=== PATIENT | female | born 1965 | race Caucasian/White ===

== ENCOUNTER 2024-05-13 18:33 | Emergency (ER) | payer OTHER, SELFPAY ==
[2024-05-13 18:36] VITALS: BP 191/113
[2024-05-13] MEDS: TORADOL 30 MG IM (19:14)
[2024-05-13 19:19] VITALS: BMI 36.1
--- NOTE | 2024-05-13 19:19 | ED.GENMED ---
History of Present Illness
General
Chief Complaint: Musculo-Skeletal Complaint
Time Seen by Provider: 05/13/24 19:19
History of Present Illness
History of Present Illness:
HPI: The patient presents with left lower extremity discomfort that started several days ago but then this afternoon acutely worsened. The pain is primarily behind the left knee. She has had a Bahena's cyst in the past and the pain currently feels
similar to the time that she had a Bahena's cyst on the right side. She ultimately had a total knee replacement on the right.
EXAM:
GENERAL: Well appearing in mild distress
HEENT: Moist oral mucosa
NEUROLOGIC: Excellent strength all extremities, no coordination deficits
PSYCHIATRIC: Appropriate mental status, normal insight and judgement
EXTREMITIES: Some mild tenderness in the left popliteal fossa, no edema, moves all extremities equally, strong left DP pulse, decreased active range of motion due to pain at the left knee
SKIN: No rash, no lesions
TIME OF INITIAL ENCOUNTER: 7:30 PM
NUMBER AND COMPLEXITY OF PROBLEMS ADDRESSED AT THE ENCOUNTER
� Chronic conditions affecting care: High blood pressure, right total knee replacement
� Acute Exacerbation and/or Progression of Chronic Illness: This is an acute problem
� Differential Diagnosis includes: Bahena's cyst, DVT, musculoskeletal etiology
AMOUNT AND/OR COMPLEXITY OF DATA TO BE REVIEWED AND ANALYZED
� I performed an independent evaluation of and my interpretation is:
EKG:
CT:
X-rays:
Laboratory Studies:
Other: Ultrasound imaging shows a small Bahena's cyst
� Review of other/old records: The patient was here with conjunctivitis 8 months ago
� Clinical information was obtained by an independent historian: Spoke to at bedside
� Prescriptions/Medications Considered but not given:
� Further testing considered but not performed:
RISK OF COMPLICATIONS AND/OR MORBIDITY OR MORTALITY OF PATIENT MANAGEMENT
� Social determinants of health affecting care: Lives at home
� Discussion with other providers:
� Escalation of care including admission/observation vs risk of discharge considered: Ultrasound does show a small Bahena's cyst. She does have a cane/walker at home. She was given a dose of Toradol here. Overall she is
improved on reassessment at 8:45 PM. There is no evidence for DVT.
Phy Exam
Physical Exam
Physical Exam:
See HPI
Course
Orders/Labs/Results
Orders:
Orders
05/13/24 19:08
Ketorolac [Toradol] 30 mg .ROUTE .STK-MED ONE
05/13/24 19:13
Periph Venous Lwr Ext Left US [US Periph Venous LOWER Ext LT] Urgent
Comment:
Reason For Exam: posterior knee pain, R/O DVT or bakers cyst
05/13/24 19:14
Ketorolac [Toradol] 30 mg IM NOW STA
Vital Signs
Initial and Last Documented VS:
Initial Vital Signs
Temp Pulse BP Pulse Ox
98.1 F 106 191/113 100
05/13/24 18:36 05/13/24 18:36 05/13/24 18:36 05/13/24 18:36
Last Documented Vital Signs
Temp Pulse BP Pulse Ox
98.1 F 106 191/113 100
05/13/24 18:36 05/13/24 18:36 05/13/24 18:36 05/13/24 18:36
*Critical Care Note
Total Time (30-74mins, 75-104mins- exclusive of procedures): Not Applicable
ED Attending Note
-
Portions of this chart may have been created with voice recognition software.� Occasional wrong word or��sound alike� substitutions may have occurred due to the inherent limitations of voice recognition software.
Discharge Plan
Departure
Patient Disposition: Home (Routine Discharge)
Date of Disposition: 05/13/24
Time of Disposition: 20:49
Patient with high blood pressure during this ER visit?: Yes
Discharge Problem:
Bahena's cyst of knee
Instructions: Bahena's Cyst (DC)
Prescriptions:
New
prednisone 50 mg tablet
50 mg PO DAILY Qty: 5 0RF
Referrals:
Saravanan Villa MD [Active] - Follow up in 2-3 days
UNKNOWN - PT DOES,NOT KNOW [Family Provider] -
Activity Restrictions/Additional Instructions:
You have a Bahena's cyst behind the left knee. This is small at 2 cm. I recommend you follow-up orthopedics such as Dr. Villa. As you have had steroids in the past which may have helped, I did send a prescription for steroids to your pharmacy. If
you do not take steroids, I recommend 3-4 [id number] ibuprofen (Motrin) every 8 hours with food for a few days. Return here if worse.
Interventions
Interventions:
*Risk Screen - Suicide Last Done: 05/13/24 18:39
*General Assessment Last Done: 05/13/24 18:39
*Neglect/Abuse Screening Last Done: 05/13/24 18:39
ED- Fall Risk Assessment Last Done: 05/13/24 19:19
ED-Musculoskeletal Assessment Last Done: 05/13/24 19:19
Discharge Date and Time
Print Language: SWAZI
[2024-05-13 21:04] VITALS: BP 161/90
== END 2024-05-13 21:08 | disposition home or self-care (01) ==
LOC: EMR 18:33
PROVIDERS: EMERGENCY PHYSICIAN Emergency Medicine
DX: M71.22 Synovial cyst of popliteal space [Baker], left knee (principal); Z96.651 Presence of right artificial knee joint
CPT/HCPCS: 99284; 96374; 93971